=== PATIENT | male | born 1990 ===

== ENCOUNTER 2020-09-11 00:03 | Emergency (ER) | payer BC ==
[~2020-09-11] VITALS: Ht 177.8 cm; Wt 99.5 kg
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
[2020-09-11] MEDS ORDERED: ONDANSETRON 4 MG/2 ML VIAL IV ONE ×2 (00:30→01:45)
[2020-09-11] MEDS ORDERED: IV NS 1000 ML 1,000 ML IV ONE (00:30)
[2020-09-11] MEDS ORDERED: ONDANSETRON 4 MG/2 ML VIAL ONE ×2 (00:52→01:50)
[2020-09-11 01:58] VITALS: BP 128/84
[2020-09-11] MEDS ORDERED: ONDA4TAB11 PO (01:59)
--- NOTE | 2020-09-11 03:25 | NUR ---
Patient discharged to home in stable condition. Written and verbal after care instructions given. Patient verbalizes understanding of instructions. Stressed follow up or return to ER for worsening s/s. Patient and patients mother given all information and belongings.
== END 2020-09-11 03:26 | disposition home or self-care (01) ==
LOC: ER 00:06
DX: S06.9X9A Unspecified intracranial injury with loss of consciousness of unspecified duration, initial encounter (principal); R40.2362 Coma scale, best motor response, obeys commands, at arrival to emergency department; R40.2142 Coma scale, eyes open, spontaneous, at arrival to emergency department; R40.2252 Coma scale, best verbal response, oriented, at arrival to emergency department; Y04.2XXA Assault by strike against or bumped into by another person, initial encounter; Y92.89 Other specified places as the place of occurrence of the external cause; Y99.8 Other external cause status; F10.129 Alcohol abuse with intoxication, unspecified; R11.2 Nausea with vomiting, unspecified; S00.83XA Contusion of other part of head, initial encounter
CPT/HCPCS: 70450; 70486; 96374; 96376; 99285; J2405 ×2; A4663; J7030